=== PATIENT | male | born 1980 | race Caucasian/White ===

== ENCOUNTER → 2020-09-15 | Day surgery (SDC) | payer BC, OTHER ==
[~2020-09-15] MED LIST: ALLEGRA ALLERG180 MG PO; EFFEXOR XR150 MG PO; HYDROXYZINE HCL25 MG PO; MULTIVITAMIN1 EACH PO; OMEPRAZOLE20 M1 PO; OMEPRAZOLE40 MG PO; TESTOSTERONE IM; VERAPAMIL ER180 MG PO; ZESTRIL 40 MG T40 MG PO
== END | disposition home or self-care (01) ==
LOC: OR 08:17
DX: Z12.11 Encounter for screening for malignant neoplasm of colon (principal); K57.31 Diverticulosis of large intestine without perforation or abscess with bleeding; G47.33 Obstructive sleep apnea (adult) (pediatric); I10 Essential (primary) hypertension; F41.0 Panic disorder [episodic paroxysmal anxiety]; K21.9 Gastro-esophageal reflux disease without esophagitis; F41.9 Anxiety disorder, unspecified; F32.9 Major depressive disorder, single episode, unspecified; Z99.89 Dependence on other enabling machines and devices; Z87.19 Personal history of other diseases of the digestive system; Z79.899 Other long term (current) drug therapy
CPT/HCPCS: J2704; J7030

== ENCOUNTER 2020-09-19 15:06 | Emergency (ER) | payer BC, OTHER ==
[2020-09-19 16:25] LABS: HEMOGLOBIN 14.7 gm/dl (14.0-17.5); RED BLOOD COUNT 5.09 M/UL (4.20-5.50); WHITE BLOOD COUNT 6.2 K/UL (4.5-11.0)
== END 2020-09-19 19:13 | disposition home or self-care (01) ==
LOC: ER1 15:06
PROVIDERS: Physician Assistant Medical
DX: R07.89 Other chest pain (principal); R06.02 Shortness of breath; I12.9 Hypertensive chronic kidney disease with stage 1 through stage 4 chronic kidney disease, or unspecified chronic kidney disease; N18.2 Chronic kidney disease, stage 2 (mild); Z79.899 Other long term (current) drug therapy; Z90.49 Acquired absence of other specified parts of digestive tract
CPT/HCPCS: 71045; 80053; 82550; 82553; 83874; 83880; 84484; 85025; 93005; 99285

== ENCOUNTER → 2020-10-10 | Outpatient (CLI) | payer BC, OTHER | LOC: HEART 5 08:00 | DX: R07.9 Chest pain, unspecified (principal); R53.83 Other fatigue; I10 Essential (primary) hypertension; I34.1 Nonrheumatic mitral (valve) prolapse; R06.02 Shortness of breath | CPT/HCPCS: 78452; A9502 ==

== ENCOUNTER → 2020-11-02 | Outpatient (CLI) | payer BC, OTHER | LOC: ECHO 08:55 | DX: R07.9 Chest pain, unspecified (principal); I10 Essential (primary) hypertension; I34.1 Nonrheumatic mitral (valve) prolapse; G47.33 Obstructive sleep apnea (adult) (pediatric); I07.1 Rheumatic tricuspid insufficiency | CPT/HCPCS: ECHO; 93306 ==